=== PATIENT | male | born 1960 | race Two or more races ===

== ENCOUNTER 2023-03-23 03:32 | Inpatient (IN) | payer OTHER ==
[~2023-03-23] VITALS: Ht 185.4 cm; Wt 108.9 kg
[2023-03-23 06:04] LABS: HEMOGLOBIN 15.5 g/dL (13-16.00); MEAN CORPUSCULAR HGB CONC 34.5 g/dl (32.0-36.0); PLATELET COUNT 188 K/uL (150-450); RED CELL DISTRIBUTION WIDTH 13.8 % (11.5-14.5)
[2023-03-23 06:29] LABS: INR 1.04; PROTHROMBIN TIME 10.9 SECONDS (9.0-11.5)
[2023-03-23 06:47] LABS: ALBUMIN 3.6 gm/dL (3.4-5.0); BILIRUBIN TOTAL 0.55 mg/dL (0.3-1.2); BILIRUBIN,CONJUGATED 0.13 mg/dL (0.0-0.2); BILIRUBIN,UNCONJUGATED 0.42 mg/dL (0.0-0.6); CALCIUM 9.5 mg/dL (8.5-10.1); CREATININE SERUM 1.14 mg/dL (0.70-1.30); GFR 64.88; POTASSIUM 4.72 mEq/L (3.5-5.1); TOTAL PROTEIN 7.6 gm/dL (6.4-8.2)
[2023-03-23 08:08] LABS: PH,URINE 5.5 (5.0-8.0); URINE APPEARANCE Clear; URINE BILIRRUBIN Negative (NEGATIVE); URINE BLOOD Negative; URINE COLOR Dark Yellow; URINE GLUCOSE Negative (NEGATIVE); URINE LEUKOCYTE Negative; URINE NITRATE Negative; URINE PROTEIN Trace (NEGATIVE); URINE UROBILINOGEN 0.2 E.U./dl
[2023-03-23 08:12] LABS: URINE EPITHELIAL CELLS 4.7 uL (0.0-38.8); URINE RBC 4.5 uL (0.0-20.8); URINE WBC 2.7 uL (0.0-23.2)
[2023-03-24 06:40] LABS: HEMATOCRIT 45.6 % (39.0-48.0); HEMOGLOBIN 15.5 g/dL (13-16.00); RED BLOOD COUNT 5.1 M/uL (4.00-6.00)
[2023-03-24 06:42] LABS: HEMATOCRIT 44.4 % (39.0-48.0); HEMOGLOBIN 15.2 g/dL (13-16.00); MEAN CELL VOLUME 89.4 fL (80.0-100.00); MEAN CORPUSCULAR HEMOGLOBIN 30.6 pg (27.00-32.0); MEAN CORPUSCULAR HGB CONC 34.2 g/dl (32.0-36.0); PLATELET COUNT 183 K/uL (150-450); RED BLOOD COUNT 4.97 M/uL (4.00-6.00); RED CELL DISTRIBUTION WIDTH 13.9 % (11.5-14.5)
[2023-03-24 07:05] LABS: CALCIUM 9.4 mg/dL (8.5-10.1); CREATININE SERUM 1.06 mg/dL (0.70-1.30); GFR 70.56; POTASSIUM 4.82 mEq/L (3.5-5.1)
[2023-03-25 06:36] LABS: HEMATOCRIT 43.1 % (39.0-48.0); HEMOGLOBIN 14.6 g/dL (13-16.00); MEAN CELL VOLUME 90.9 fL (80.0-100.00); MEAN CORPUSCULAR HEMOGLOBIN 30.8 pg (27.00-32.0); MEAN CORPUSCULAR HGB CONC 33.9 g/dl (32.0-36.0); PLATELET COUNT 172 K/uL (150-450); RED BLOOD COUNT 4.73 M/uL (4.00-6.00); RED CELL DISTRIBUTION WIDTH 13.9 % (11.5-14.5)
[2023-03-25 07:19] LABS: ALBUMIN 3.1 gm/dL (3.4-5.0); BILIRUBIN TOTAL 0.8 mg/dL (0.3-1.2); CREATININE SERUM 0.95 mg/dL (0.70-1.30); GFR 80.07; GLOBULINA 3.3 G/DL (2.4-3.5); MAGNESIUM 2.1 mg/dL (1.8-2.4); PHOSPHOROUS 2.5 mg/dL (2.5-4.9); POTASSIUM 4.78 mEq/L (3.5-5.1); TOTAL PROTEIN 6.4 gm/dL (6.4-8.2)
[2023-03-25 07:43] LABS: CALCIUM 8.8 mg/dL (8.5-10.1); GFR 75.47; POTASSIUM 4.82 mEq/L (3.5-5.1)
== END 2023-03-25 19:36 | disposition home or self-care (01) | DRG 399 ==
LOC: ER 03:33 → MEDJ 17:50 → SURH 17:50 → MEDJ 22:21
PROVIDERS: General Practice; Internal Medicine Infectious Disease; Surgery; ADMIT Specialist; ATTEND Specialist
PROC: 0WQF4ZZ Repair Abdominal Wall, Percutaneous Endoscopic Approach (ICD-10-PCS; 2023-03-23)
PROC: BW21ZZZ Computerized Tomography (CT Scan) of Abdomen and Pelvis (ICD-10-PCS; 2023-03-23)
PROC: 0DTJ4ZZ Resection of Appendix, Percutaneous Endoscopic Approach (ICD-10-PCS; principal; 2023-03-23 20:00)
DX: K35.891 Other acute appendicitis without perforation, with gangrene (principal); K43.9 Ventral hernia without obstruction or gangrene